=== PATIENT | female | born 1990 | race African-American/Black ===

== ENCOUNTER 2018-04-04 10:55 | Emergency (ER) | payer MEDICAID, MEDICARE ==
[~2018-04-04 10:55] MED LIST: PREN-88 PO
== END 2018-04-04 12:48 | disposition left against medical advice (07) ==
LOC: ER 10:55
DX: R06.02 Shortness of breath (principal); R07.89 Other chest pain; Z53.21 Procedure and treatment not carried out due to patient leaving prior to being seen by health care provider

== ENCOUNTER 2018-05-22 19:09 | Emergency (ER) | payer MEDICAID, MEDICARE ==
[~2018-05-22] VITALS: Ht 170.2 cm; Wt 113.0 kg
[2018-05-22] MEDS ORDERED: LIDOCAINE HCL 1% 20ML VIAL (Pyxis) INJ INFIL ONE (23:30)
[2018-05-22] MEDS ORDERED: BACITRACIN ZINC OINT UDPKT TOP ONE (23:30)
[2018-05-22] MEDS ORDERED: IBUPROFEN 600MG TABLET PO ONE (23:30)
[2018-05-23 01:00] VITALS: BP 129/67
== END 2018-05-23 01:00 | disposition home or self-care (01) ==
LOC: ER 19:09
DX: L03.116 Cellulitis of left lower limb (principal); J45.909 Unspecified asthma, uncomplicated; Z98.890 Other specified postprocedural states
CPT/HCPCS: 10060; 99283; J3490; J7030